=== PATIENT | female | born 1960 | race Caucasian/White ===

== ENCOUNTER → 2016-05-30 | Outpatient (CLI) | payer OTHER | END | disposition home or self-care (01) | LOC: CFH 14:33 → EDSTATUS 15:00 | PROVIDERS: ATTEND Internal Medicine | DX: Z12.31 Encounter for screening mammogram for malignant neoplasm of breast (principal); I08.3 Combined rheumatic disorders of mitral, aortic and tricuspid valves; I37.1 Nonrheumatic pulmonary valve insufficiency; I49.3 Ventricular premature depolarization; R10.10 Upper abdominal pain, unspecified; R06.83 Snoring; R51 Headache; R53.83 Other fatigue | CPT/HCPCS: 93306; G0202 ==

== ENCOUNTER → 2016-09-02 | Outpatient (CLI) | payer OTHER ==
[2016-09-02 07:34] LABS: BLOOD UREA NITROGEN 21 mg/dL (7-18)
== END | disposition home or self-care (01) ==
LOC: LAB 07:07
PROVIDERS: ATTEND Nurse Practitioner Primary Care
DX: Z12.4 Encounter for screening for malignant neoplasm of cervix (principal); Z12.11 Encounter for screening for malignant neoplasm of colon; Z12.39 Encounter for other screening for malignant neoplasm of breast; Z13.220 Encounter for screening for lipoid disorders; I49.9 Cardiac arrhythmia, unspecified; J06.0 Acute laryngopharyngitis; R53.83 Other fatigue; R31.9 Hematuria, unspecified; E55.9 Vitamin D deficiency, unspecified; R10.10 Upper abdominal pain, unspecified; R06.83 Snoring; R51 Headache; R73.01 Impaired fasting glucose; R05 Cough
CPT/HCPCS: 36415; 80048; 80061; 81001; 87077; 87086; 87186

== ENCOUNTER → 2016-09-15 | Outpatient (CLI) | payer OTHER | END | disposition home or self-care (01) | LOC: CARD 12:47 | PROVIDERS: ATTEND Internal Medicine Critical Care Medicine | DX: G47.36 Sleep related hypoventilation in conditions classified elsewhere (principal) | CPT/HCPCS: 94060; 94726; 94729 ==